=== PATIENT | female | born 1965 | race Hispanic/Latino ===

== ENCOUNTER 2016-12-15 17:51 | Emergency (ER) | payer MEDICARE ==
[2016-12-15] MEDS ORDERED: Lidocaine 1% w/Epinephrine 1:100K 20 ML VIAL ONE (18:27)
[2016-12-15] MEDS ORDERED: Adacel (T-DAP) 0.5 ML VIAL ONE (18:56)
== END 2016-12-15 19:15 | disposition home or self-care (01) ==
LOC: NAV ERS 17:51
DX: L02.215 Cutaneous abscess of perineum (principal); E11.9 Type 2 diabetes mellitus without complications; E78.5 Hyperlipidemia, unspecified; I10 Essential (primary) hypertension; E66.9 Obesity, unspecified; F41.9 Anxiety disorder, unspecified; F32.9 Major depressive disorder, single episode, unspecified; Z86.73 Personal history of transient ischemic attack (TIA), and cerebral infarction without residual deficits; Z87.891 Personal history of nicotine dependence; Z79.82 Long term (current) use of aspirin; Z79.899 Other long term (current) drug therapy; Z79.02 Long term (current) use of antithrombotics/antiplatelets
CPT/HCPCS: 56405; 90471; 90715; J2001

== ENCOUNTER 2017-07-01 19:54 | Emergency (ER) | payer MEDICARE ==
[2017-07-01] MEDS ORDERED: Sodium Chloride 0.9% 1,000 ML ONE ×2 (20:15→23:07)
[2017-07-01] MEDS ORDERED: Acetaminophen 500 MG TAB ONE (20:15)
[2017-07-01 20:44] LABS: Hemoglobin 12.7 g/dL (12.0-16.0); Mean Corpuscular HGB CONC 32.4 g/dL (32.0-36.0); Mean Corpuscular Hemoglobin 30.6 pg (27.0-31.0); Mean Corpuscular Volume 94.2 fl (81.0-99.0); Mean Platelet Volume 7.7 fL (7.4-10.4); Platelet Count 116 thou/uL (130-400); RBC Distribution Width 13.1 % (11.5-14.5); Red Blood Cell (RBC) Count 4.16 mill/uL (4.20-5.40); White Blood Cell (WBC) Count 6.5 thou/uL (4.8-10.8)
[2017-07-01 20:45] LABS: Band 11 % (5-11); Lymphocytes 6 % (21-51); MDiff Complete? YES; Monocytes 1 % (0-10); Neutrophil 82 % (42-75); PLT Morphology Comment Appears Adequate; RBC Morphology Normal
[2017-07-01 20:52] LABS: ALT (SGPT) 20 U/L (8-55); AST (SGOT) 29 U/L (5-34); Albumin 3.9 g/dL (3.5-5.0); Alkaline Phosphatase 82 U/L (40-150); Anion Gap 15 mmol/L (10-20); BUN (Urea Nitrogen) 17 mg/dL (9.8-20.1); Bilirubin, Total 1.7 mg/dL (0.2-1.2); Calc. Creatinine Clearance 0 mL/min (70-130); Calcium 9.3 mg/dL (7.8-10.44); Carbon Dioxide 24 mmol/L (22-29); Chloride 105 mmol/L (98-107); Estimated GFR-MDRD 56; Globulin 3.2 g/dL (2.4-3.5); Glucose 98 mg/dL (70-105); Potassium 3.9 mmol/L (3.5-5.1); Protein, Total 7.1 g/dL (6.0-8.3); Sodium 140 mmol/L (136-145)
[2017-07-01 20:55] LABS: Bilirubin Negative (Negative); Blood, Urine Large (Negative); Clarity Cloudy (Clear); Glucose, Urine (Dipstick) 500 mg/dL (Negative); Leukocyte Small (Negative); Nitrite Negative (Negative); Protein, Urine (Dipstick) 100 mg/dL (Neg-Trace); pH, Urine 5.5 (5.0-9.0)
[2017-07-01 21:01] LABS: Bacteria/HPF 2+ HPF (None Seen); RBC/HPF GREATER THAN 50-TNTC HPF (0-3)
[2017-07-01] MEDS ORDERED: cefTRIAXone\\ROCEPHIN 1 GM VIAL ONE (21:10)
[2017-07-01] MEDS ORDERED: Sodium Chloride 0.9% 100 ML ONE (21:10)
[2017-07-01] MEDS ORDERED: Ibuprofen 800 MG TAB ONE (21:20)
--- NOTE | 2017-07-01 21:46 | RAD ---
PORTABLE CHEST ONE VIEW: 07/01/17 at 8:39 p.m. HISTORY: Fever, chills, body pain. FINDINGS: Comparison made with earlier exam of 1:17 a.m. from the same day. The heart size is stable. The lungs are well expanded without focal areas of consolidation, pneumoth orax, dong pulmonary or pleural effusions. IMPRESSION: No acute process. POS: [facility]
[2017-07-01] MEDS ORDERED: Nitrofurantoin Macrocrystal 50 MG CAP ONE (21:54)
== END 2017-07-01 23:05 | disposition home or self-care (01) ==
LOC: NAV ERS 19:54
DX: N39.0 Urinary tract infection, site not specified (principal); E11.9 Type 2 diabetes mellitus without complications; E78.5 Hyperlipidemia, unspecified; I10 Essential (primary) hypertension; E66.9 Obesity, unspecified; F41.9 Anxiety disorder, unspecified; F32.9 Major depressive disorder, single episode, unspecified; I25.2 Old myocardial infarction; Z87.891 Personal history of nicotine dependence; Z79.82 Long term (current) use of aspirin; Z79.899 Other long term (current) drug therapy
CPT/HCPCS: 36415; 71010; 81015; 83605; 87040; 87077; 87086; 87149; 87186; 96361; 96365; J0696; J7050

== ENCOUNTER 2025-05-10 16:33 | Emergency (ER) | payer OTHER, MEDICAID ==
[~2025-05-10 16:33] MED LIST: Iopamidol 370 76% 100 ML VIAL ONE
[2025-05-10 17:35] LABS: Anion Gap 17 mmol/L (10-20); Calcium 7.9 mg/dL (7.8-10.44); Carbon Dioxide 19 mmol/L (22-29); Chloride 106 mmol/L (98-107); Potassium 3.7 mmol/L (3.5-5.1); Sodium 138 mmol/L (136-145)
[2025-05-10 17:42] LABS: Troponin I Less than 0.010 ng/mL (< 0.028)
[2025-05-10 17:44] LABS: Hematocrit 25.1 % (36.0-47.0); Hemoglobin 8.1 g/dL (12.0-16.0); MDiff Complete? YES; Mean Corpuscular Hemoglobin 26.0 pg (27.0-31.0); Mean Corpuscular Volume 80.5 fl (78.0-98.0); Microcytosis SLIGHT = 6-15 cells (100X) (0-5/hpf); Platelet Count 281 10x3/uL (130-400); Red Blood Cell (RBC) Count 3.11 mill/uL (4.20-5.40); White Blood Cell (WBC) Count 27.8 10x3/uL (4.8-10.8)
[2025-05-10 17:52] LABS: ALT (SGPT) 27 U/L (Less than 34); AST (SGOT) 32 U/L (11-34); Albumin 2.3 g/dL (3.1-4.5); Alkaline Phosphatase 106 U/L (40-110); BUN (Urea Nitrogen) 20 mg/dL (9.8-20.1); Bilirubin, Total 0.8 mg/dL (0.3-1.2); Calc. Creatinine Clearance 0 mL/min (70-130); Globulin 3.0 g/dL (2.4-3.5); Glucose 101 mg/dL (70-105)
[2025-05-10] MEDS ORDERED: LevoFLOXacin 750 mg/D5W 150 ml Premix Bag ONE (17:54)
[2025-05-10] MEDS ORDERED: Acetaminophen 325 MG TAB ONE ×2 (17:54→22:11)
[2025-05-10] MEDS ORDERED: Cefepime 2 GM VIAL ONE (17:54)
[2025-05-10 18:51] LABS: Glucose, Urine (Dipstick) Negative (Negative); Leukocyte Small (Negative); Protein, Urine (Dipstick) 100 mg/dL (Neg-Trace); Specific Gravity, Urine 1.020 (1.005-1.030)
[2025-05-10 18:55] LABS: RBC/HPF 0-3 HPF (0-3)
[2025-05-10 18:56] LABS: Bacteria/HPF 4+ HPF (None Seen); CAUTI Indications for Culture Fever or rigors; Mucous/LPF 1+ LPF (<2+)
[2025-05-10 18:58] LABS: Urine Culture Reflex No No
[2025-05-10] MEDS ORDERED: metroNIDAZOLE 500 MG (100 mL) BAG ONE (22:03)
== END 2025-05-11 00:12 | disposition short-term general hospital (02) ==
LOC: NAV ERS 16:33
DX: R50.9 Fever, unspecified (principal); R65.10 Systemic inflammatory response syndrome (SIRS) of non-infectious origin without acute organ dysfunction; K51.018 Ulcerative (chronic) pancolitis with other complication; K66.8 Other specified disorders of peritoneum; D64.9 Anemia, unspecified; R05.9 Cough, unspecified; D72.829 Elevated white blood cell count, unspecified; I10 Essential (primary) hypertension; I25.2 Old myocardial infarction; E11.9 Type 2 diabetes mellitus without complications; Z87.891 Personal history of nicotine dependence
CPT/HCPCS: 71045; 74177; 80053; 81001; 83605; 83880; 84484; 85025; 87426; 93005; 94760; 96365; 96367; J0692; J1956; J7030; Q9967